=== PATIENT | male | born 1995 | race Caucasian/White ===

== ENCOUNTER 2017-11-28 19:46 | Emergency (ER) | payer OTHER ==
[~2017-11-28] VITALS: Ht 177.8 cm; Wt 75.9 kg
[2017-11-28 19:50] VITALS: TEMP 36.7; Ht 177.8 cm; Wt 75.9 kg
[2017-11-28] MEDS ORDERED: DIPHTHERIA/TETANUS/PERTUSSIS 0.5 ML SYR/VIAL IM. ONE (20:15)
[2017-11-28] MEDS ORDERED: XYLOCAINE 1%/SOD BICARB 20 ML VIAL INFIL ONE (20:15)
--- NOTE | 2017-11-28 21:13 | EMERGENCY ROOM VISIT NOTE ---
History First contact with patient: 19:59 Chief Complaint: HEAD INJURY (MINOR) Stated Complaint: HIT BACK OF HEAD History of Present Illness The patient is a 22 year old male who presents to the Emergency Room with complaints of a possible laceration to the back of his head. The patient does not know how he sustained a laceration. He was told by his roommates that he had blood running down his neck today. The patient admits to going to to green party last night and drinking alcohol. He blacked out. He noticed that there is damage to a shelf in his bathroom. He may have struck his head on the shelf. He currently denies any headache or neck pain. No nausea or dizziness. He is unsure of his last tetanus shot. Review of Systems 10 system review performed and negative unless noted in HPI or below Past Medical/Surgical History Otherwise healthy Social History Smoking Status: Never Smoker Occupation Status: [employer] student Current/Historical Medications Scheduled Cephalexin Monohydrate (Keflex), 500 MG PO TID Physical Exam Vital Signs Date Time Temp Pulse Resp B/P (MAP) Pulse Ox O2 Delivery O2 Flow Rate FiO2 11/28/17 23:06 58 16 139/70 100 Room Air 11/28/17 19:50 36.7 69 18 97 Room Air Physical Exam VITALS: Vitals are noted on the nurse's note and reviewed by myself. Vital signs stable. GENERAL: 22-year-old male, in no acute distress, nondiaphoretic, well-developed well-nourished. HEAD: 3 cm vertical laceration noted to the occipital region of the head. The edges gape apart with traction. There is no active bleeding. No foreign material in the wound. No ling signs or raccoon eyes. EARS: External auditory canals clear, tympanic membranes pearly yusuf without erythema or effusion bilaterally. EYES: Pupils equal round and reactive to light and accommodation. Conjunctivae without injection, sclerae without icterus. Extraocular movements intact. MOUTH: Mucous membranes moist. Tonsils are not enlarged. Pharynx without erythema or exudate. Uvula midline. Airway patent. Tongue does not deviate. MUSCULOSKELETAL: No muscle atrophy, erythema, or edema Normal gait. Strength 5/ 5 throughout. NEURO: Patient was alert and oriented to person place and time. Cranial nerves grossly intact. Cerebellar function intact. Normal sensation to touch. No focal neurological deficits. Medical Decision & Procedures ER Provider Diagnostic Interpretation: CT head Impression: No acute intracranial abnormality. Electronically signed by: Zeeshan Guerrero M.D. 11/28/2017 9:54 PM Dictated Date/Time: 11/28/2017 9:51 PM Medications Administered Medications (Trade) Dose Ordered Sig/Edinson Route Start Time Stop Time Status Last Admin Dose Admin Diphtheria/ Pertussis/Tetanus Vacc (Adacel Inj) 0.5 ml ONCE ONCE IM. 11/28/17 20:15 11/28/17 20:16 DC 11/28/17 20:23 0.5 ML Cephalexin Monohydrate (Keflex Cap) 500 mg NOW ONCE PO 11/28/17 21:45 11/28/17 21:46 DC 11/28/17 21:50 500 MG Procedure Verbal consent was obtained to perform the procedure. Using sterile technique the wound was cleaned with Betadine. The area was sterilely draped. 5 ml of 1 % buffered lidocaine was used to anesthetize the laceration. Once the patient was anesthetized, the wound was copiously irrigated under pressure with sterile saline. The wound was explored and there were no deep structures injured such as tendons, bone, or significant blood vessels. The laceration was repaired using 5 tiff with the wound edges being well approximated. The patient tolerated the procedure well. Hemostasis was achieved. ED Course The patient was seen and examined He declined pain medication A CT of the head was performed and reviewed. Please see my procedure note. The patient was given an Adacel injection and 1 dose of Keflex The laceration was repaired. Please see my procedure note. Discharge instructions were reviewed, and he was discharged in good condition Medical Decision Differential diagnosis: Laceration, wound infection, skull fracture, concussion , intracranial bleed this patient is a 22-year-old male presents to the emergency department with a laceration to the back of his head. He has no idea how or when he sustained it. He thinks it was last night.On exam, he had no neurological deficits. He had a significant laceration to the back of the head that required closure. He will be prophylactically covered with antibiotics. I also ordered a CT as he cannot remember the incident. This was negative for any acute findings. I believe he is stable to be discharged home. He will follow-up in 10 days for staple removal. He will return with any new or concerning symptoms This chart was completed in part utilizing [employer] Speech Voice Recognition software. Attempts were made to minimize the grammatical errors, random word insertions, pronoun errors and incomplete sentences. Any formal questions or concerns about the content, text or information contained within the body of this dictation should be directly addressed to the provider for clarification. Impression Primary Impression: Scalp laceration Departure Information Dispostion Home / Self-Care Condition GOOD Prescriptions Cephalexin Monohydrate (Keflex) 500 Mg Cap 500 MG PO TID for 5 Days, #15 CAP Prov: Rosa Vega PA-C 11/28/17 Referrals [facility] (PCP) Patient Instructions My [facility] Additional Instructions Take the ENTIRE course of antibiotics Keep wound clean. It is okay to gently wash the area with soapy water. Do not submerse it in water for long periods of time such as swimming, going in hot tubs or taking baths until the sutures come out. Do not allow any crusting or dried blood to accumulate on sutures. If this occurs, use a 1:1 solution of hydrogen peroxide/water on a Q-tip to clean the wound. Use an antibiotic ointment for 3-4 days, then let wound dry. Staple removal in 10 days. Return sooner for any signs of infection (increasing redness, swelling, drainage). Ice and elevate for swelling and pain. Ibuprofen 600 mg and Tylenol 1000 mg every 6 hrs for pain.
[2017-11-28] MEDS ORDERED: CEPH500C PO (21:33)
[2017-11-28] MEDS ORDERED: CEPHALEXIN MONOHYDRATE 250 MG CAP PO ONE (21:45)
--- NOTE | 2017-11-28 21:56 | DIAGNOSTIC IMAGING REPORT ---
HEAD CT NONCONTRAST CT DOSE: 537.48 mGy.cm HISTORY: Loss of consciousness. Head injury. TECHNIQUE: Multiaxial CT images of the head were performed without the use of intravenous contrast. Automated exposure control was utilized for this study. A dose lowering technique was utilized adhering to the principles of ALARA. Comparison: None. Findings: The paranasal sinuses and mastoid air cells are clear. The calvarium and skull base are intact. The ventricles and sulci are within normal limits. There is no mass, hematoma, midline shift, or acute infarct. Impression: No acute intracranial abnormality. Electronically signed by: Zeeshan Guerrero M.D. 11/28/2017 9:54 PM Dictated Date/Time: 11/28/2017 9:51 PM
[2017-11-28 23:06] VITALS: BP 139/70; PULSE 58; O2SAT 100
== END 2017-11-28 23:14 | disposition home or self-care (01) ==
LOC: C.EDB 19:48 → C.EDD 23:14
DX: S01.01XA Laceration without foreign body of scalp, initial encounter (principal); W19.XXXA Unspecified fall, initial encounter; Z23 Encounter for immunization